=== PATIENT | male | born 1970 | race African-American/Black ===

== ENCOUNTER 2021-10-09 17:07 | Inpatient (IN) | payer MEDICARE, OTHER ==
[~2021-10-09] VITALS: Ht 190.5 cm; Wt 111.6 kg
[2021-10-09] MEDS ORDERED: TRAMADOL HCL 50 MG TABLET ONE (19:28)
[2021-10-09] MEDS ORDERED: TRAMADOL HCL 50 MG TABLET PO ONE (19:30)
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
--- NOTE | 2021-10-09 20:22 | NUR ---
SHINGLES ROOFER HELPER AT PT'S BEDSIDE
--- NOTE | 2021-10-09 21:06 | NUR ---
COVID SWAB COLLECTED AND SENT TO LAB
[2021-10-09] MEDS ORDERED: ACET325C7 PO (22:24)
--- NOTE | 2021-10-09 22:31 | NUR ---
bed 323 - 2
--- NOTE | 2021-10-09 22:55 | NUR ---
20G RAC. BLOOD DRAWN AND SENT TO LAB
[2021-10-09] MEDS ORDERED: MAGNESIUM HYDROXIDE 30 ML UDC PO PRN (23:00)
[2021-10-09] MEDS ORDERED: MAG HYDROX/AL HYDROX/SIMETH 30 ML UDC PO PRN (23:00)
[2021-10-09] MEDS ORDERED: ONDANSETRON HCL/PF 4 MG/2 ML VIAL IVP PRN (23:00)
[2021-10-09] MEDS ORDERED: ACETAMINOPHEN 325 MG TABLET PO PRN (23:00)
[2021-10-09] MEDS ORDERED: Z GUARD REMEDY 4 OZ OINT TP PRN (23:00)
[2021-10-09] MEDS ORDERED: ZOLPIDEM TARTRATE 5 MG TABLET PO PRN (23:00)
--- NOTE | 2021-10-09 23:00 | NUR ---
REPORT GIVEN TO AI MITCHELL
--- NOTE | 2021-10-09 23:11 | NUR ---
PT TRANSPORTED TO [place] [id number] VIA [facility]
[2021-10-09 23:20] VITALS: BP 146/85
[2021-10-09 23:45] VITALS: BP 146/85
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
[2021-10-10] MEDS: MORPHINE SULFATE INJ 2 MG/ML DISP.SYRIN IV PRN ×5 (00:39→19:59)
[2021-10-10] MEDS ORDERED: DEXTROSE 50%-WATER 50 ML DISP.SYRIN IV PRN (01:30)
--- NOTE | 2021-10-10 01:37 | NUR ---
PER DR. TORRES, HOLD LOVENOX FOR NOW TILL AFTER MRI
[2021-10-10] MEDS: QUETIAPINE FUMARATE 100 MG TABLET PO SCH ×2 (01:39→18:35)
[2021-10-10] MEDS: HYDROCODONE/APAP 5/325MG TABLET PO PRN ×2 (02:35→12:20)
[2021-10-10] MEDS ORDERED: BISACODYL SUPP (10 MG) 10 MG/SUPP.RECT SUPP.RECT RC PRN (05:30)
[2021-10-10 06:12] LABS: CALCIUM, SERUM 8.5 mg/dL (8.5-10.1); CREATININE 0.9 mg/dL (0.6-1.3); MAGNESIUM 1.4 mg/dL (1.8-2.4); PHOSPHORUS 4.1 mg/dL (2.5-4.9); POTASSIUM 3.9 mmol/L (3.5-5.1)
[2021-10-10] MEDS: INSULIN REGULAR, HUMAN 100 UNIT/ML 3 ML VIAL SQ PRN ×4 (06:33→21:15)
[2021-10-10] MEDS: BLOOD SUGAR DIAGNOSTIC 1 EACH STRIP IN SCH ×4 (06:33→21:15)
[2021-10-10 06:44] LABS: BASOPHILS % (AUTO) 0.2 % (0.0-2.0); EOSINOPHILS % (AUTO) 1.5 % (0.0-6.0); HEMATOCRIT 34 % (39-51); HEMOGLOBIN 10.7 g/dL (13.5-17.5); LYMPHOCYTES # (AUTO) 4.1 K/uL (0.8-4.8); LYMPHOCYTES % (AUTO) 45.9 % (20.0-44.0); MEAN CORPUSCULAR HGB CONC 32 g/dl (31.0-36.0); MEAN CORPUSCULAR VOLUME 66 fL (80-96); MONOCYTES # (AUTO) 0.4 K/uL (0.1-1.30); MONOCYTES % (AUTO) 4.4 % (2.0-12.0); NEUTROPHILS # (AUTO) 4.3 K/uL (1.8-8.9); PLATELET COUNT (AUTO) 216 K/uL (150-450); RED BLOOD CELL COUNT(AUTO) 5.17 MIL/uL (4.5-6.0); WHITE BLOOD COUNT (AUTO) 8.9 K/uL (4.3-11.0)
--- NOTE | 2021-10-10 06:48 | NUR ---
PAIN MANAGEMENT ROUND THE CLOCK, MORPHINE 2 MG IV Q4HRS, NORCO 1 TAB PO, BEDREST, UNABLE TO AMBULATE, USES URINAL, CONTINENT OF BOWEL AND BLADDER, WOUND CARE CONSULT ORDERED, MRI WITH AND WO CONTRAST, CHECKLIST DONE.
--- NOTE | 2021-10-10 07:27 | NUR ---
RN OPENING NOTE- PT AWAKE AND ORIENTED X 4. INTERACTIVE. COMFORTABLE AT PRESENT W CURRENT RX . SIDE RAILS UP, BED LOCKED, CALL LIGHT IN REACH. MONITOR / ASSIST
[2021-10-10 08:00] VITALS: BP 145/98
[2021-10-10] MEDS ORDERED: CYCL10TA9 PO (08:24)
[2021-10-10] MEDS ORDERED: HYDR-3980 PO (08:24)
[2021-10-10] MEDS ORDERED: BISA10SU11 RC (08:24)
[2021-10-10] MEDS ORDERED: MULT-439 PO (08:24)
[2021-10-10] MEDS ORDERED: QUET200T PO (08:24)
[2021-10-10] MEDS ORDERED: ACET325T53 PO (08:24)
[2021-10-10] MEDS ORDERED: ASCO500C17 PO (08:24)
[2021-10-10] MEDS ORDERED: NA P133E RC (08:24)
[2021-10-10] MEDS ORDERED: METF-442 PO (08:24)
[2021-10-10] MEDS ORDERED: IBUP-1957 PO (08:24)
[2021-10-10] MEDS ORDERED: BUPR100T5 PO (08:24)
[2021-10-10] MEDS ORDERED: AMIN887L PO (08:24)
[2021-10-10] MEDS ORDERED: MAGN400O6 PO (08:24)
[2021-10-10] MEDS ORDERED: ZINC220T3 PO (08:24)
[2021-10-10] MEDS: buPROPion SR 100 MG TABLET.ER PO SCH ×2 (08:28→21:15)
[2021-10-10] MEDS: NICOTINE PATCH (14MG) 14 MG PATCH.TD24 TD SCH (08:28)
[2021-10-10] MEDS ORDERED: MAGNESIUM OXIDE 400 MG TABLET PO SCH (09:30)
[2021-10-10] MEDS: CYCLOBENZAPRINE 10 MG TABLET PO PRN ×2 (10:02→21:15)
[2021-10-10] MEDS ORDERED: GADOTERATE MEGLUMINE 10 MMOL/20 ML VIAL IV ONE (16:15)
--- NOTE | 2021-10-10 19:02 | NUR ---
RN CLOSING NOTE-- MRI COMPLETED TODAY . MORE COMFORTABLE ALTERNATING RX. PT AWAKE AND ORIENTED X 4. INTERACTIVE. COMFORTABLE AT PRESENT W CURRENT RX . SIDE RAILS UP, BED LOCKED, CALL LIGHT IN REACH. MONITOR / ASSIST
--- NOTE | 2021-10-10 19:36 | NUR ---
RN OPENING NOTE PATIENT AWAKE IN BED. A/OX3. NO S/S OF DISTRESS, BREATHING W/O DIFFICULTY ON ROOM AIR. RAC #20 HL INTACT AND PATENT. SAFETY MEASURES IN PLACE: BED LOCKED AND AT LOWEST POSITION, RAILS UP X2, CALL MARTINEZ WITHIN REACH. WILL CONTINUE TO MONITOR PATIENT.
[2021-10-10 20:00] VITALS: BP 131/85
[2021-10-11] MEDS: HYDROCODONE/APAP 5/325MG TABLET PO PRN (00:08)
[2021-10-11] MEDS: MORPHINE SULFATE INJ 2 MG/ML DISP.SYRIN IV PRN ×2 (02:48→10:43)
[2021-10-11] MEDS: BLOOD SUGAR DIAGNOSTIC 1 EACH STRIP IN SCH ×2 (06:34→12:16)
[2021-10-11] MEDS: INSULIN REGULAR, HUMAN 100 UNIT/ML 3 ML VIAL SQ PRN ×2 (06:35→12:16)
--- NOTE | 2021-10-11 06:38 | NUR ---
RN CLOSING NOTE PATIENT ASLEEP IN BED. A/OX3. NO S/S OF DISTRESS, BREATHING W/O DIFFICULTY ON ROOM AIR. RAC #20 HL INTACT AND PATENT. SAFETY MEASURES IN PLACE: BED LOCKED AND AT LOWEST POSITION, RAILS UP X2, CALL MARTINEZ WITHIN REACH. WILL ENDORSE TO NEXT SHIFT FOR LINSEY.
--- NOTE | 2021-10-11 07:20 | NUR ---
RN OPENING NOTES RECEIVED PATIENT RESTING IN BED. A/O X3. NO C/O OF PAIN VERBALIZED AT THIS TIME. STABLE ON RA WITH NO SOB NOTED. RAC #20 HL INTACT AND PATENT. SAFETY MEASURES IN PLACE: BED LOCKED AND AT LOWEST POSITION, RAILS UP X2, CALL MARTINEZ WITHIN REACH. WILL CONTINUE TO MONITOR PATIENT
--- NOTE | 2021-10-11 07:27 | NUR ---
WOUND CARE CONSULT: PT PRESENTS WITH DRY CALLUSES TO FEET, PRESENT ON ADMISSION. NO TENDERNESS, DRAINAGE OR ERYTHEMA NOTED. WILL SEE PRN.
[2021-10-11] MEDS: NICOTINE PATCH (14MG) 14 MG PATCH.TD24 TD SCH (09:30)
[2021-10-11] MEDS: buPROPion SR 100 MG TABLET.ER PO SCH (09:30)
--- NOTE | 2021-10-11 15:34 | NUR ---
TELECOMMUNICATIONS MANAGER NOTES PATIENT MEDICALLY STABLE FOR DISCHARGE. VSS. EXIT CARE PACKET PROVIDED. DISCHARGE INSTRUCTIONS PROVIDED FOR PATIENT. PATIENT VERBALIZED UNDERSTANDING. SKIN ASSESSED AND NO TREATMENTS ORDERED BY WOUND CARE NURSE, ANASTASIIA. PATIENT'S SKIN REMAINED CLEAR AND INTACT. ALL BELONGINGS ACCOUNTED FOR AND DOCUMENTS SIGNED. PATIENT LEFT HOSPITAL ACCOMPANIED BY 2 EMT.
== END 2021-10-11 15:34 | DRG 552 ==
LOC: ER 17:27 → MED 22:50
PROVIDERS: ADMIT Student in an Organized Health Care Education/Training Program; ATTEND Internal Medicine
DX: M54.32 Sciatica, left side (principal); E11.9 Type 2 diabetes mellitus without complications; I10 Essential (primary) hypertension; Z96.642 Presence of left artificial hip joint; Z20.822 Contact with and (suspected) exposure to COVID-19; F20.9 Schizophrenia, unspecified; V89.2XXS Person injured in unspecified motor-vehicle accident, traffic, sequela; E78.5 Hyperlipidemia, unspecified; M19.90 Unspecified osteoarthritis, unspecified site; Z72.0 Tobacco use; M25.859 Other specified joint disorders, unspecified hip; M16.12 Unilateral primary osteoarthritis, left hip
CPT/HCPCS: 36415; 73552; 80048-TC; 82962-TC; 83735-TC; 84100-TC; 85025-TC; 87081-TC; 93971-TC; 97116-TC; 97530-TC; A9575; C9803; G0378; J1815; J2270